=== PATIENT | female | born 1975 | race Caucasian/White ===

== ENCOUNTER → 2020-12-08 | Outpatient (CLI) | payer OTHER | END | disposition home or self-care (01) | LOC: LABWHC1 16:07 | PROVIDERS: ATTEND Family Medicine | DX: Z20.822 Contact with and (suspected) exposure to COVID-19 (principal) | CPT/HCPCS: U0003; C9803; U0005 ==

== ENCOUNTER 2021-01-10 11:30 | Day surgery (SDC) | payer OTHER ==
[2021-01-05 14:29] VITALS: BMI 43.8
[~2021-01-10 11:30] MED LIST: LACTATED RINGERS 1,000 ML IV SCH; LIDOCAINE 1% (10MG/ML) FOR IV START INTRADERMA PRN
[2021-01-10 11:51] VITALS: TEMP 97.5
[2021-01-10] MEDS ORDERED: PROPOFOL 10 MG/ML 20 ML VIAL IV ONE (12:26)
[2021-01-10] MEDS ORDERED: fentaNYL (PF) 50 MCG/ML 2 ML AMP ONE (12:26)
[2021-01-10] MEDS ORDERED: LIDOCAINE 1% INJ 10MG/ML (20 ML MDV) ONE (12:26)
[2021-01-10 12:55] VITALS: RESP 18
--- NOTE | 2021-01-10 13:11 | PCN ---
PROCEDURE NOTE DATE OF SERVICE: 01/10/2021. PROCEDURE: Bone marrow aspirate and biopsy. DESCRIPTION OF PROCEDURE: After obtaining consent from the patient, the procedure was attempted to be performed in the endoscopy suite under general anesthesia performed by anesthesia team. The patient was put on the left lateral decubitus position. The right posterior superior iliac crest was localized. Skin was prepped with ChloraPrep. All sterile procedures were followed. Two mL of 2% Xylocaine was used for local anesthetic and a small incision was made and Monoject needle was inserted. As I was inserting the Monoject needle, the patient developed significant dyspnea, coughing, and she started moving around and agitated. So the procedure was aborted and the patient did wake up in a stable condition. In the incision area, there was negligible blood loss. Pressure applied afterwards. Again, the bone marrow procedure was aborted. MMHUY / LINDSEY: [id number] /
[2021-01-10 13:30] LABS: Basophils # (A) 0.1 k/uL (0-0.2); Basophils % (A) 1 %; Eosinophils # (A) 0.2 k/uL (0-0.7); Eosinophils % (A) 1 %; HCT 44.8 % (34.0-46.0); HGB 14.4 gm/dL (11.4-16.0); Lymphocytes % (A) 23 %; MCH 28.3 pg (25.0-35.0); MCHC 32.2 g/dL (31.0-37.0); MCV 87.9 fL (80.0-100.0); Mean Platelet Volume 15.1; Monocytes # (A) 1.1 k/uL (0-1.0); Monocytes % (A) 6 %; Neutrophils # (A) 11.7 k/uL (1.3-7.7); Neutrophils % (A) 67 %; RBC 5.09 m/uL (3.80-5.40); RDW 15.7 % (11.5-15.5); WBC 17.3 k/uL (3.8-10.6)
[2021-01-10 13:36] VITALS: BP 100/71; PULSE 72
== END 2021-01-10 13:43 | disposition home or self-care (01) ==
LOC: OR 11:30
PROVIDERS: ATTEND Internal Medicine Hematology & Oncology
DX: D72.829 Elevated white blood cell count, unspecified (principal); R06.00 Dyspnea, unspecified; R05 Cough; R45.1 Restlessness and agitation; F17.200 Nicotine dependence, unspecified, uncomplicated; F41.9 Anxiety disorder, unspecified; F32.9 Major depressive disorder, single episode, unspecified; F41.0 Panic disorder [episodic paroxysmal anxiety]; K58.9 Irritable bowel syndrome, unspecified; K21.9 Gastro-esophageal reflux disease without esophagitis; Z90.49 Acquired absence of other specified parts of digestive tract; Z98.890 Other specified postprocedural states; Z80.0 Family history of malignant neoplasm of digestive organs; Z80.8 Family history of malignant neoplasm of other organs or systems; Z86.19 Personal history of other infectious and parasitic diseases; F17.210 Nicotine dependence, cigarettes, uncomplicated; Z79.899 Other long term (current) drug therapy; Z91.048 Other nonmedicinal substance allergy status
CPT/HCPCS: 85025; 38222; J2001; J3010; J2704